=== PATIENT | female | born 1990 | race American Indian/Alaskan Native ===

== ENCOUNTER 2017-03-28 08:32 | Emergency (ER) | payer OTHER, MEDICAID ==
[2017-03-28 08:41] VITALS: BP 122/67; PULSE 87; RESP 18; TEMP 98.2; O2SAT 99
[2017-03-28 08:42] VITALS: BMI 30.4
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
--- NOTE | 2017-03-28 10:21 | RAD ---
PROCEDURE: Cervical Spine Radiographs. HISTORY: Pain. COMPARISON: None. FINDINGS: BONES: Five views of the cervical spine were performed. C1-C2 articulation is within normal limits. No fracture is seen. Posterior elements are intact. No jumped facets are identified. No cervical ribs are seen. No malalignment is noted. DISC SPACES: Unremarkable without evidence of narrowing. No endplate spurring is seen. SOFT TISSUES: Normal. No prevertebral soft tissue swelling. OTHER FINDINGS: Lung apices are unremarkable. There is limited evaluation of the neural foramen on the oblique views due to positioning. Mild amount of bony neural foraminal narrowing is not excluded. IMPRESSION: No evidence of fracture or malalignment.
== END 2017-03-28 11:05 | disposition home or self-care (01) ==
LOC: H.ER 08:32
DX: S39.92XA Unspecified injury of lower back, initial encounter (principal); S19.9XXA Unspecified injury of neck, initial encounter; V49.9XXA Car occupant (driver) (passenger) injured in unspecified traffic accident, initial encounter